=== PATIENT | female | born 1975 | race Caucasian/White ===

== ENCOUNTER 2017-07-28 14:32 | Inpatient (IN) | payer OTHER, MEDICAID ==
[~2017-07-28] VITALS: Ht 157.5 cm; Wt 127.7 kg
[2017-07-28 14:56] LABS: BASOPHILS # (AUTO) 0.03 x10^3/uL (0-0.1); BASOPHILS % (AUTO) 0 % (0-1); EOSINOPHILS % (AUTO) 1 % (1-7); LYMPHOCYTES % (AUTO) 19 % (22-44); MD NO; MEAN CORPUSCULAR HEMOGLOBIN 29.8 pg (27.0-34.8); MEAN CORPUSCULAR HGB CONC 33.2 g/dL (32.4-35.8); MEAN CORPUSCULAR VOLUME 89.6 fL (80-100); MEAN PLATELET VOLUME 9.2 fL (7.4-10.4); MONOCYTES # (AUTO) 0.95 x10^3/uL (0.2-0.8); MONOCYTES % (AUTO) 8 % (2-9); NEUTROPHILS # (AUTO) 8.14 x10^3/uL (1.8-6.8); NEUTROPHILS % (AUTO) 72 % (42-75); PLATELET COUNT 204 x10^3/uL (130-400); RED CELL DISTRIBUTION WIDTH 14.9 % (9.6-15.2)
[2017-07-28 15:06] LABS: ALANINE AMINOTRANSFERASE 25 U/L (12-78); ALBUMIN 2.3 g/dL (3.4-5.0); ANION GAP 7 mmol/L (5-15); CALCIUM 8.1 mg/dL (8.5-10.1); CHLORIDE 110 mmol/L (98-107); CREATININE 0.85 mg/dL (0.55-1.02)
[2017-07-28 15:07] LABS: BILIRUBIN, DIRECT < 0.1 mg/dL (0.1-0.2)
[2017-07-28 15:08] LABS: ALKALINE PHOSPHATASE 104 U/L (45-117); BILIRUBIN,TOTAL 0.4 mg/dL (0.2-1.0); TOTAL PROTEIN 5.8 g/dL (6.4-8.2)
[2017-07-28] MEDS ORDERED: PREN1TAB10 PO (15:14)
[2017-07-28] MEDS ORDERED: FLAX1000 PO (15:15)
[2017-07-28 15:16] VITALS: BP 162/91
[2017-07-28] MEDS ORDERED: CALC-545 PO (15:16)
[2017-07-28 15:40] LABS: CREATININE,URINE RANDOM 93.6 mg/dL
[2017-07-28 16:11] LABS: MICROSCOPIC INDICATED
[2017-07-28] MEDS ORDERED: BETAMETHASONE 6 MG/ML, 5ML IM ONE ×2 (16:27→18:28)
[2017-07-28] MEDS: BETAMETHASONE 6 MG/ML, 5ML IM SCH (16:51)
[2017-07-28] MEDS ORDERED: LABETALOL 200 MG TABLET ONE (20:46)
[2017-07-28] MEDS: LABETALOL 200 MG TABLET PO SCH (20:49)
[2017-07-29 07:05] LABS: MEAN CORPUSCULAR HEMOGLOBIN 29.5 pg (27.0-34.8); MEAN CORPUSCULAR VOLUME 89.5 fL (80-100); MEAN PLATELET VOLUME 9.4 fL (7.4-10.4); PLATELET COUNT 183 x10^3/uL (130-400); RED BLOOD COUNT 4.47 x10^6/uL (3.82-5.3); RED CELL DISTRIBUTION WIDTH 15.3 % (9.6-15.2)
[2017-07-29 07:16] LABS: ALBUMIN 2.3 g/dL (3.4-5.0); ANION GAP 9 mmol/L (5-15); CALCIUM 7.9 mg/dL (8.5-10.1); CHLORIDE 107 mmol/L (98-107)
[2017-07-29 07:20] LABS: ALANINE AMINOTRANSFERASE 23 U/L (12-78); ALKALINE PHOSPHATASE 95 U/L (45-117); BILIRUBIN,TOTAL 0.4 mg/dL (0.2-1.0); TOTAL PROTEIN 5.6 g/dL (6.4-8.2)
[2017-07-29 07:52] LABS: BASOPHILS # (AUTO) 0.04 x10^3/uL (0-0.1); BASOPHILS % (AUTO) 0 % (0-1); EOSINOPHILS % (AUTO) 0 % (1-7); LYMPHOCYTES # (AUTO) 1.18 x10^3/uL (1-3.4); LYMPHOCYTES % (AUTO) 9 % (22-44); MD SCAN; MONOCYTES # (AUTO) 0.38 x10^3/uL (0.2-0.8); MONOCYTES % (AUTO) 3 % (2-9); NEUTROPHILS # (AUTO) 12.26 x10^3/uL (1.8-6.8); NEUTROPHILS % (AUTO) 88 % (42-75)
[2017-07-29] MEDS ORDERED: LABETALOL 200 MG TABLET ONE ×2 (09:11→21:45)
[2017-07-29] MEDS: LABETALOL 200 MG TABLET PO SCH ×2 (09:12→21:48)
[2017-07-29] MEDS ORDERED: METOCLOPRAMIDE 5 MG/ML, 2ML ONE (14:01)
[2017-07-29] MEDS ORDERED: OXYTOCIN 30U/ 0.9% NaCL 500ML 500 ML ONE (14:01)
[2017-07-29] MEDS ORDERED: SODIUM CITRATE/CITRIC ACID 30 ML UDC ONE (14:01)
[2017-07-29] MEDS: BETAMETHASONE 6 MG/ML, 5ML IM SCH (16:31)
[2017-07-29] MEDS ORDERED: FENTANYL/BUPIV./NS/PF 250 ML EPIDCONT SCH (16:54)
[2017-07-29] MEDS ORDERED: EPHEDRINE 50 MG/ML, 1ML IVPush PRN (17:00)
[2017-07-29] MEDS ORDERED: NALOXONE 0.4 MG/ML, 1ML IVPush PRN (17:00)
[2017-07-29] MEDS: LACTATED RINGERS 1,000 ML IV SCH (18:00)
[2017-07-29] MEDS ORDERED: LACTATED RINGERS 1,000 ML IVBOLUS PRN (18:00)
[2017-07-29 21:47] VITALS: BP 157/79
[2017-07-29 23:53] VITALS: BP 139/72
[2017-07-30] MEDS: LACTATED RINGERS 1,000 ML IV SCH ×3 (02:00→18:00)
[2017-07-30 05:33] LABS: BASOPHILS # (AUTO) 0.01 x10^3/uL (0-0.1); BASOPHILS % (AUTO) 0 % (0-1); EOSINOPHILS % (AUTO) 0 % (1-7); LYMPHOCYTES # (AUTO) 1.68 x10^3/uL (1-3.4); LYMPHOCYTES % (AUTO) 11 % (22-44); MD NO; MEAN CORPUSCULAR HEMOGLOBIN 29.7 pg (27.0-34.8); MEAN CORPUSCULAR HGB CONC 33.5 g/dL (32.4-35.8); MEAN CORPUSCULAR VOLUME 88.7 fL (80-100); MEAN PLATELET VOLUME 9.5 fL (7.4-10.4); MONOCYTES # (AUTO) 0.59 x10^3/uL (0.2-0.8); MONOCYTES % (AUTO) 4 % (2-9); NEUTROPHILS # (AUTO) 12.37 x10^3/uL (1.8-6.8); NEUTROPHILS % (AUTO) 84 % (42-75); PLATELET COUNT 184 x10^3/uL (130-400); RED BLOOD COUNT 4.13 x10^6/uL (3.82-5.3); RED CELL DISTRIBUTION WIDTH 15.1 % (9.6-15.2)
[2017-07-30 05:45] LABS: CHLORIDE 106 mmol/L (98-107)
[2017-07-30 05:51] LABS: ALANINE AMINOTRANSFERASE 23 U/L (12-78); ALBUMIN 2.3 g/dL (3.4-5.0); ALKALINE PHOSPHATASE 84 U/L (45-117); ANION GAP 12 mmol/L (5-15); BILIRUBIN,TOTAL 0.3 mg/dL (0.2-1.0); CREATININE 0.98 mg/dL (0.55-1.02); TOTAL PROTEIN 5.6 g/dL (6.4-8.2)
[2017-07-30] MEDS ORDERED: LABETALOL 200 MG TABLET ONE ×2 (07:46→23:52)
[2017-07-30 07:48] VITALS: BP 177/90
[2017-07-30] MEDS: LABETALOL 200 MG TABLET PO SCH ×3 (07:49→23:54)
[2017-07-30] MEDS: PRENATAL VIT/IRON/FA 1 EACH TABLET PO SCH (09:00)
[2017-07-30] MEDS ORDERED: LABETALOL 100 MG TABLET ONE (16:20)
[2017-07-30 19:15] VITALS: BP 165/86
[2017-07-31] MEDS: LACTATED RINGERS 1,000 ML IV SCH ×6 (02:00→23:44)
[2017-07-31 06:33] LABS: BASOPHILS # (AUTO) 0.03 x10^3/uL (0-0.1); BASOPHILS % (AUTO) 0 % (0-1); EOSINOPHILS # (AUTO) 0.01 x10^3/uL (0-0.4); EOSINOPHILS % (AUTO) 0 % (1-7); LYMPHOCYTES # (AUTO) 1.75 x10^3/uL (1-3.4); LYMPHOCYTES % (AUTO) 14 % (22-44); MD NO; MEAN CORPUSCULAR HEMOGLOBIN 29.4 pg (27.0-34.8); MEAN CORPUSCULAR HGB CONC 32.8 g/dL (32.4-35.8); MEAN CORPUSCULAR VOLUME 89.8 fL (80-100); MEAN PLATELET VOLUME 9.9 fL (7.4-10.4); MONOCYTES # (AUTO) 0.94 x10^3/uL (0.2-0.8); MONOCYTES % (AUTO) 7 % (2-9); NEUTROPHILS % (AUTO) 78 % (42-75); PLATELET COUNT 178 x10^3/uL (130-400); RED BLOOD COUNT 4.49 x10^6/uL (3.82-5.3); RED CELL DISTRIBUTION WIDTH 15.4 % (9.6-15.2)
[2017-07-31 06:42] LABS: ALBUMIN 2.5 g/dL (3.4-5.0); ANION GAP 11 mmol/L (5-15); CALCIUM 8.3 mg/dL (8.5-10.1); CHLORIDE 110 mmol/L (98-107)
[2017-07-31 06:46] LABS: ALANINE AMINOTRANSFERASE 33 U/L (12-78); ALKALINE PHOSPHATASE 84 U/L (45-117); BILIRUBIN,TOTAL 0.5 mg/dL (0.2-1.0); CREATININE 1.01 mg/dL (0.55-1.02)
[2017-07-31] MEDS ORDERED: NEWBORN KIT ONE (07:03)
[2017-07-31] MEDS ORDERED: SODIUM CITRATE/CITRIC ACID 30 ML UDC ONE (07:03)
[2017-07-31] MEDS ORDERED: METOCLOPRAMIDE 5 MG/ML, 2ML ONE (07:03)
[2017-07-31] MEDS ORDERED: OXYTOCIN 30U/ 0.9% NaCL 500ML 500 ML ONE (07:04)
[2017-07-31] MEDS ORDERED: LACTATED RINGERS 1,000 ML IV SCH ×2 (07:09→07:30)
[2017-07-31] MEDS ORDERED: OXYTOCIN 30U/ 0.9% NaCL 500ML 500 ML IV SCH (07:09)
[2017-07-31] MEDS ORDERED: morphine SULFATE/PF 0.5 MG/ML, 10ML ONE (07:24)
[2017-07-31] MEDS ORDERED: SODIUM CITRATE/CITRIC ACID 30 ML UDC PO ONE (07:30)
[2017-07-31] MEDS ORDERED: LACTATED RINGERS 1,000 ML IVBOLUS ONE (07:30)
[2017-07-31] MEDS ORDERED: ONDANSETRON 2MG/ML, 2ML IVPush ONE (07:30)
[2017-07-31] MEDS ORDERED: OXYTOCIN 10 UNITS/ML, 1ML ONE (07:30)
[2017-07-31] MEDS ORDERED: METOCLOPRAMIDE 5 MG/ML, 2ML IV ONE (07:30)
[2017-07-31] MEDS ORDERED: CEFAZOLIN 1,000 MG ONE ×2 (07:30→07:32)
[2017-07-31] MEDS ORDERED: WATER-INJECTION,STERILE 10 ML IV ONE (07:30)
[2017-07-31] MEDS ORDERED: EPHEDRINE 50 MG/ML, 1ML ONE (07:30)
[2017-07-31] MEDS ORDERED: PHENYLEPHRINE 10 MG/ML ONE (07:30)
[2017-07-31] MEDS ORDERED: ONDANSETRON 2MG/ML, 2ML ONE ×2 (07:30→13:18)
[2017-07-31] MEDS ORDERED: GLYCOPYRROLATE 0.2MG/1ML, 5ML ONE (07:32)
[2017-07-31] MEDS ORDERED: SIMETHICONE 80 MG CHEW TAB PO PRN (08:00)
[2017-07-31] MEDS ORDERED: MISOPROSTOL 200 MCG TABLET PR PRN (08:00)
[2017-07-31] MEDS ORDERED: CALCIUM CARBONATE 500 MG TAB.CHEW PO PRN (08:00)
[2017-07-31] MEDS: KETOROLAC 30 MG/1 ML IV SCH ×3 (08:00→20:00)
[2017-07-31] MEDS ORDERED: morphine SULFATE 10 MG/ML, 1ML IVPush PRN ×2 (08:00)
[2017-07-31] MEDS ORDERED: IBUPROFEN 600 MG TABLET PO PRN (08:00)
[2017-07-31] MEDS ORDERED: MEASLES,MUMPS&RUBELLA VACC/PF 0.5 ML SQ-VACC PRN (08:00)
[2017-07-31] MEDS ORDERED: ONDANSETRON 2MG/ML, 2ML IV PRN (08:00)
[2017-07-31] MEDS ORDERED: ACETAMINOPHEN 325 MG TABLET PO PRN ×2 (08:00)
[2017-07-31] MEDS ORDERED: MAGNESIUM SULF. PMX 20GM/500ML 500 ML IV ONE ×3 (08:36→22:32)
[2017-07-31] MEDS ORDERED: MAGNESIUM SULF. PMX 20GM/500ML 500 ML IV SCH ×2 (08:36→12:00)
[2017-07-31] MEDS: PRENATAL VIT/IRON/FA 1 EACH TABLET PO SCH ×2 (09:00)
[2017-07-31] MEDS ORDERED: MAGNESIUM SULFATE PMX 4GM/100M 100 ML IVPB ONE (09:00)
[2017-07-31 10:09] LABS: MEAN CORPUSCULAR HEMOGLOBIN 29.9 pg (27.0-34.8); MEAN CORPUSCULAR HGB CONC 33.2 g/dL (32.4-35.8); MEAN CORPUSCULAR VOLUME 90.2 fL (80-100); MEAN PLATELET VOLUME 9.4 fL (7.4-10.4); PLATELET COUNT 148 x10^3/uL (130-400); RED BLOOD COUNT 3.04 x10^6/uL (3.82-5.3); RED CELL DISTRIBUTION WIDTH 15.2 % (9.6-15.2)
[2017-07-31] MEDS ORDERED: LABETALOL 200 MG TABLET ONE ×3 (10:17→23:56)
[2017-07-31 10:21] LABS: BASOPHILS # (AUTO) 0.01 x10^3/uL (0-0.1); BASOPHILS % (AUTO) 0 % (0-1); EOSINOPHILS # (AUTO) 0.02 x10^3/uL (0-0.4); EOSINOPHILS % (AUTO) 0 % (1-7); LYMPHOCYTES # (AUTO) 1.48 x10^3/uL (1-3.4); LYMPHOCYTES % (AUTO) 12 % (22-44); MD SCAN; MONOCYTES # (AUTO) 0.84 x10^3/uL (0.2-0.8); MONOCYTES % (AUTO) 7 % (2-9); NEUTROPHILS # (AUTO) 10.09 x10^3/uL (1.8-6.8); NEUTROPHILS % (AUTO) 81 % (42-75)
[2017-07-31] MEDS: LABETALOL 200 MG TABLET PO SCH ×3 (10:27→21:00)
[2017-07-31] MEDS: OXYTOCIN 30U/ 0.9% NaCL 500ML 500 ML IV SCH ×2 (10:52→17:44)
[2017-07-31] MEDS ORDERED: OXYcodone/APAP 5/325MG TABLET ONE ×2 (10:55→21:37)
[2017-07-31] MEDS: OXYcodone/APAP 5/325MG TABLET PO PRN ×2 (10:57→21:42)
[2017-07-31 12:00] VITALS: BP 154/80
[2017-07-31] MEDS: MAGNESIUM SULF. PMX 20GM/500ML 500 ML IV SCH ×3 (14:29→22:35)
[2017-07-31 20:38] VITALS: BP 135/88
[2017-08-01] MEDS: KETOROLAC 30 MG/1 ML IV SCH ×3 (02:00→14:00)
[2017-08-01] MEDS: LACTATED RINGERS 1,000 ML IV SCH ×4 (03:44→13:44)
[2017-08-01] MEDS: OXYTOCIN 30U/ 0.9% NaCL 500ML 500 ML IV SCH ×2 (03:44→13:44)
[2017-08-01 06:03] LABS: BASOPHILS # (AUTO) 0.04 x10^3/uL (0-0.1); BASOPHILS % (AUTO) 0 % (0-1); EOSINOPHILS # (AUTO) 0.07 x10^3/uL (0-0.4); EOSINOPHILS % (AUTO) 0 % (1-7); LYMPHOCYTES # (AUTO) 3.05 x10^3/uL (1-3.4); LYMPHOCYTES % (AUTO) 20 % (22-44); MD NO; MEAN CORPUSCULAR HGB CONC 33.2 g/dL (32.4-35.8); MEAN CORPUSCULAR VOLUME 90.6 fL (80-100); MEAN PLATELET VOLUME 9.5 fL (7.4-10.4); MONOCYTES # (AUTO) 1.26 x10^3/uL (0.2-0.8); MONOCYTES % (AUTO) 8 % (2-9); NEUTROPHILS % (AUTO) 72 % (42-75); PLATELET COUNT 157 x10^3/uL (130-400); RED BLOOD COUNT 3.01 x10^6/uL (3.82-5.3); RED CELL DISTRIBUTION WIDTH 15.5 % (9.6-15.2)
[2017-08-01 06:07] LABS: CHLORIDE 103 mmol/L (98-107)
[2017-08-01 06:21] LABS: ALANINE AMINOTRANSFERASE 53 U/L (12-78); ALBUMIN 2.1 g/dL (3.4-5.0); ALKALINE PHOSPHATASE 65 U/L (45-117); ANION GAP 10 mmol/L (5-15); BILIRUBIN,TOTAL 0.4 mg/dL (0.2-1.0); CALCIUM 6.4 mg/dL (8.5-10.1); CREATININE 0.95 mg/dL (0.55-1.02); TOTAL PROTEIN 4.8 g/dL (6.4-8.2)
[2017-08-01 06:22] LABS: BILIRUBIN, DIRECT < 0.1 mg/dL (0.1-0.2)
[2017-08-01 07:30] VITALS: BP 154/89
[2017-08-01] MEDS ORDERED: LABETALOL 200 MG TABLET ONE (08:49)
[2017-08-01] MEDS: LABETALOL 200 MG TABLET PO SCH ×2 (08:59→21:05)
[2017-08-01] MEDS: PRENATAL VIT/IRON/FA 1 EACH TABLET PO SCH ×2 (09:00)
[2017-08-01] MEDS: MAGNESIUM SULF. PMX 20GM/500ML 500 ML IV SCH (10:10)
[2017-08-01] MEDS ORDERED: OXYcodone/APAP 5/325MG TABLET ONE ×2 (11:24→11:39)
[2017-08-01] MEDS: OXYcodone/APAP 5/325MG TABLET PO PRN ×3 (11:40→20:03)
[2017-08-01 12:00] VITALS: BP 139/85
[2017-08-01 16:00] VITALS: BP 139/82
[2017-08-01 19:35] VITALS: BP 155/91
[2017-08-01 19:37] VITALS: BP 159/88
[2017-08-01 21:00] VITALS: BP 140/91
[2017-08-01] MEDS: DOCUSATE 100 MG CAPSULE PO PRN (21:00)
[2017-08-02] VITALS (7 sets, daily range): BP systolic 126–161; BP diastolic 64–89
[2017-08-02] MEDS: OXYcodone/APAP 5/325MG TABLET PO PRN ×4 (00:32→19:52)
[2017-08-02] MEDS ORDERED: LABETALOL 100 MG TABLET PO SCH (08:00)
[2017-08-02] MEDS: PRENATAL VIT/IRON/FA 1 EACH TABLET PO SCH ×2 (09:00→09:17)
[2017-08-02] MEDS: DOCUSATE 100 MG CAPSULE PO PRN ×2 (09:17→19:51)
[2017-08-02] MEDS: LABETALOL 100 MG TABLET PO SCH ×2 (09:18→21:14)
[2017-08-03 00:10] VITALS: BP 137/80
[2017-08-03 04:15] VITALS: BP 153/81
[2017-08-03] MEDS: OXYcodone/APAP 5/325MG TABLET PO PRN ×5 (04:16→22:11)
[2017-08-03 07:35] VITALS: BP 158/94
[2017-08-03] MEDS: LABETALOL 100 MG TABLET PO SCH ×2 (09:19→22:10)
[2017-08-03] MEDS: PRENATAL VIT/IRON/FA 1 EACH TABLET PO SCH (09:19)
[2017-08-03] MEDS: DOCUSATE 100 MG CAPSULE PO PRN ×2 (09:19→22:10)
[2017-08-03 13:19] VITALS: BP 155/93
[2017-08-03 17:01] VITALS: BP 141/93
[2017-08-03 19:25] VITALS: BP 155/92
[2017-08-04] VITALS: BP 131/81
[2017-08-04 05:00] VITALS: BP 135/91
[2017-08-04 07:45] VITALS: BP 144/90
[2017-08-04] MEDS: LABETALOL 100 MG TABLET PO SCH (09:08)
[2017-08-04] MEDS: PRENATAL VIT/IRON/FA 1 EACH TABLET PO SCH (09:08)
[2017-08-04] MEDS: DOCUSATE 100 MG CAPSULE PO PRN (09:08)
[2017-08-04] MEDS: OXYcodone/APAP 5/325MG TABLET PO PRN ×2 (09:09→13:27)
[2017-08-04] MEDS ORDERED: OXYC-302 PO (12:41)
[2017-08-04] MEDS ORDERED: DOCU-131 PO (12:42)
[2017-08-04] MEDS ORDERED: IBUP-1222 PO (12:42)
[2017-08-04] MEDS ORDERED: LABE100T3 PO (12:45)
== END 2017-08-04 14:35 | disposition home or self-care (01) | DRG 765 ==
LOC: LDOP 14:32 → LDIP 16:21 → 2NE 07-31 11:52 → 2NW 08-01 12:10
PROVIDERS: ADMIT Obstetrics & Gynecology; ATTEND Obstetrics & Gynecology
PROC: 0T9B70Z Drainage of Bladder with Drainage Device, Via Natural or Artificial Opening (ICD-10-PCS; 2017-07-28)
PROC: 10D00Z1 Extraction of Products of Conception, Low, Open Approach (ICD-10-PCS; principal; 2017-07-31)
DX: O24.420 Gestational diabetes mellitus in childbirth, diet controlled (principal); Z68.43 Body mass index [BMI] 50.0-59.9, adult; E66.9 Obesity, unspecified; O14.14 Severe pre-eclampsia complicating childbirth; O99.214 Obesity complicating childbirth; Z37.0 Single live birth; Z3A.29 29 weeks gestation of pregnancy
CPT/HCPCS: 36415; 80053; 81001; 81050; 82248; 82570; 83735; 84156; 84550; 85014; 85018; 85025; 86850; 86900; 87081; 87147; J0690; J0702; J2274; J2405; J3490; J2370; J2590; J2765; J3475; J7120